=== PATIENT | male | born 1965 | race Native Hawaiian/Other Pacific Islander ===

== ENCOUNTER 2019-06-30 09:30 | Outpatient (CLI) | payer OTHER | END 2019-06-30 20:48 | disposition home or self-care (01) | LOC: RAD 09:30 | DX: M54.5 Low back pain (principal) ==

== ENCOUNTER 2021-01-29 09:48 | Emergency (ER) | payer OTHER ==
[~2021-01-29] VITALS: Ht 160 cm; Wt 100.7 kg
[2021-01-29 12:40] VITALS: BP 123/81; TEMP 98.1
== END 2021-01-29 12:40 | disposition home or self-care (01) ==
LOC: ED 09:48
DX: S00.83XA Contusion of other part of head, initial encounter (principal); S10.93XA Contusion of unspecified part of neck, initial encounter; S00.81XA Abrasion of other part of head, initial encounter; V59.49XA Driver of pick-up truck or van injured in collision with other motor vehicles in traffic accident, initial encounter; Y92.411 Interstate highway as the place of occurrence of the external cause
CPT/HCPCS: 90471; 90715; 96372; 99283; J1885